=== PATIENT | female | born 1985 | race Caucasian/White ===

== ENCOUNTER 2016-06-10 19:12 | Emergency (ER) | payer SELFPAY ==
[2009-12-07 15:44] VITALS: BMI 21.3
[2016-06-10 20:02] LABS: BASOPHILS 0.2 % (0.0-2.0); EOSINOPHILS 2.3 % (0-7); HEMATOCRIT 44.1 % (36.0-48.0); HEMOGLOBIN 15.4 g/dL (12-16); IMMATURE GRANULOCYTES 0.2 % (0-5); LYMPHOCYTES 21.6 % (15-50); MCH 32.3 pg (26.0-34.0); MCHC 34.9 g/dL (31.0-37.0); MCV 92.5 fL (80.0-100.0); MEAN PLATELET VOLUME 9.8 fL (7.4-10.4); MONOCYTES 5.3 % (2-11); NEUTROPHILS 70.4 % (40-80); PLATELET COUNT 311 10x3/uL (130-400); RBC 4.77 10x6/uL (4.00-5.40); RDW 11.4 % (11.5-14.5); WBC 11.1 10x3/uL (4.8-10.8)
[2016-06-10 20:20] LABS: ALBUMIN 4.3 g/dL (3.4-5.0); ALKALINE PHOSPHATASE 79 U/L (46-116); ALT (SGPT) 23 U/L (10-68); BILIRUBIN - TOTAL 0.56 mg/dL (0.2-1.3); CALC OSMOLALITY 284 mosm/kg (275-300); CALCIUM 9.1 mg/dL (8.5-10.1); CARBON DIOXIDE 28.7 mmol/L (21.0-32.0); CHLORIDE - SERUM 105 mmol/L (98-107); CREATININE - SERUM 0.8 mg/dL (0.6-1.3); GLUCOSE 115 mg/dL (74-106); POTASSIUM - SERUM 3.5 mmol/L (3.5-5.1); SODIUM 142 mmol/L (136-145); UREA NITROGEN 14 mg/dL (7-18); eGFR NON AFRICAN AMERICAN 90 mL/min (90-120)
[2016-06-10 22:40] LABS: HCG URINE NEGATIVE (NEGATIVE)
[2016-06-10 22:52] LABS: UDS - AMPHET POSITIVE QUAL (NEGATIVE); UDS - BARB NEGATIVE QUAL (NEGATIVE); UDS - BENZO NEGATIVE QUAL (NEGATIVE); UDS - COCAINE NEGATIVE QUAL (NEGATIVE); UDS - METH NEGATIVE QUAL (NEGATIVE); UDS - OPIATE NEGATIVE QUAL (NEGATIVE); UDS - PCP NEGATIVE QUAL (NEGATIVE); UDS - THC NEGATIVE QUAL (NEGATIVE)
[2016-06-10 22:55] LABS: APPEARANCE HAZY (CLEAR); BILIRUBIN NEGATIVE (NEGATIVE); COLOR YELLOW (YELLOW); GLUCOSE NEGATIVE (NEGATIVE); KETONE NEGATIVE (NEGATIVE); LEUKOCYTE ESTERASE NEGATIVE (NEGATIVE); NITRITE NEGATIVE (NEGATIVE); PROTEIN 1+ mg/dL (NEGATIVE); UROBILINOGEN NORMAL (NORMAL)
[2016-06-10 22:57] LABS: BACTERIA FEW /hpf (NONE SEEN); EPITHELIAL CELLS 0-5 /hpf (0-5); MUCUS <1+ /lpf (NONE SEEN); RED CELLS - URINE 0-5 /hpf (0-5); WHITE CELLS - URINE 0-5 /hpf (0-5)
== END 2016-06-10 23:43 | disposition home or self-care (01) ==
LOC: D.ER 19:12
PROVIDERS: Family Medicine; Physician Assistant
DX: R53.1 Weakness (principal); R53.83 Other fatigue; R51 Headache; F15.10 Other stimulant abuse, uncomplicated; A59.9 Trichomoniasis, unspecified; F17.200 Nicotine dependence, unspecified, uncomplicated

== ENCOUNTER 2020-06-28 10:52 | Emergency (ER) | payer MEDICAID ==
[~2020-06-28] VITALS: Ht 172.7 cm; Wt 54.5 kg
[2020-06-28 11:11] VITALS: BP 139/79; Ht 172.7 cm; Wt 54.5 kg
== END 2020-06-28 11:58 | disposition home or self-care (01) ==
LOC: D.ER 10:52
DX: R21 Rash and other nonspecific skin eruption (principal); F45.8 Other somatoform disorders